=== PATIENT | female | born 1950 | race Caucasian/White ===

== ENCOUNTER → 2016-09-13 | Outpatient (CLI) | payer OTHER | LOC: RAD 12:01 | DX: R06.00 Dyspnea, unspecified (principal); J98.09 Other diseases of bronchus, not elsewhere classified | CPT/HCPCS: 71020 ==

== ENCOUNTER 2020-06-12 21:41 | Emergency (ER) | payer MEDICARE, OTHER ==
[~2020-06-12 21:41] MED LIST: NORCO 7.5-3251 EACH PO; ONDANSETRON ODT4 MG PO
[2020-06-12 22:12] LABS: HEMOGLOBIN 14.3 gm/dl (12.3-15.3); RED BLOOD COUNT 4.6 M/UL (4.00-5.10); WHITE BLOOD COUNT 10.8 K/UL (4.5-11.0)
[2020-06-12 22:28] LABS: BUN/CREATININE RATIO 20 (0-10)
== END 2020-06-13 02:30 | disposition admitted as inpatient to this hospital (09) ==
LOC: ER1 21:41
PROVIDERS: Internal Medicine
DX: R20.0 Anesthesia of skin (principal); F32.9 Major depressive disorder, single episode, unspecified; F17.210 Nicotine dependence, cigarettes, uncomplicated
CPT/HCPCS: 70450; 71045; 80053; 82550; 82553; 83874; 84484; 85025; 85610; 85730; 93005; 99285

== ENCOUNTER → 2020-12-04 | Outpatient (CLI) | payer MEDICARE, OTHER | LOC: CT 13:00 | DX: R51.9 Headache, unspecified (principal); Z98.890 Other specified postprocedural states; I69.198 Other sequelae of nontraumatic intracerebral hemorrhage; H53.469 Homonymous bilateral field defects, unspecified side; G81.14 Spastic hemiplegia affecting left nondominant side | CPT/HCPCS: 70470; Q9967 ==

== ENCOUNTER 2021-01-20 18:50 | Emergency (ER) | payer MEDICARE, OTHER ==
[2021-01-20 19:51] LABS: HEMOGLOBIN 13.7 gm/dl (12.3-15.3); RED BLOOD COUNT 4.33 M/UL (4.00-5.10); WHITE BLOOD COUNT 11.5 K/UL (4.5-11.0)
[2021-01-20 20:23] LABS: BUN/CREATININE RATIO 15 (0-10)
[2021-01-21] MEDS ORDERED: ONDANSETRON ODT4 MG PO (19:51)
[2021-01-21] MEDS ORDERED: HYDROCODON-ACE1 EAC4 PO (19:51)
[2021-01-21] MEDS ORDERED: FLOMAX0.4 MG PO (19:51)
== END 2021-01-20 22:15 | disposition home or self-care (01) ==
LOC: ER1 18:50
PROVIDERS: Family Medicine
DX: R10.9 Unspecified abdominal pain (principal); R31.9 Hematuria, unspecified; F17.200 Nicotine dependence, unspecified, uncomplicated; R10.811 Right upper quadrant abdominal tenderness; R10.812 Left upper quadrant abdominal tenderness; R10.813 Right lower quadrant abdominal tenderness; R10.814 Left lower quadrant abdominal tenderness
CPT/HCPCS: 36600; 71045; 80053; 80307; 81001; 82150; 82550; 82553; 82803; 83605; 83690; 83874; 84484; 85025; 96374; 96375; 99284; J2270; J2405; Q9967

== ENCOUNTER 2021-01-21 17:04 | Emergency (ER) | payer MEDICARE, OTHER ==
[2021-01-21 17:53] LABS: HEMOGLOBIN 14.2 gm/dl (12.3-15.3); RED BLOOD COUNT 4.66 M/UL (4.00-5.10); WHITE BLOOD COUNT 11.1 K/UL (4.5-11.0)
[2021-01-21] MEDS ORDERED: HYDROCODON-ACE1 EAC4 PO (19:51)
[2021-01-21] MEDS ORDERED: FLOMAX0.4 MG PO (19:51)
[2021-01-21] MEDS ORDERED: ONDANSETRON ODT4 MG PO (19:51)
== END 2021-01-21 22:35 | disposition home or self-care (01) ==
LOC: ER1 17:04
PROVIDERS: Emergency Medicine
DX: N13.2 Hydronephrosis with renal and ureteral calculous obstruction (principal); J44.9 Chronic obstructive pulmonary disease, unspecified
CPT/HCPCS: 80053; 83605; 85025; 96374; 96375; 96376; 99284; J1885; J2270; J2405